=== PATIENT | female | born 1985 | race Caucasian/White ===

== ENCOUNTER 2017-12-18 23:25 | Emergency (ER) | payer SELFPAY ==
[2017-12-19] MEDS: IBUPROFEN 600 MG TAB PO (01:25)
[2017-12-19] MEDS: traMADol 50 MG TAB PO (01:25)
[2017-12-19] MEDS: CLINDAMYCIN 300 MG INJ IM (01:26)
== END 2017-12-19 01:45 | disposition home or self-care (01) ==
LOC: FTE 23:25
DX: L02.416 Cutaneous abscess of left lower limb (principal); J45.909 Unspecified asthma, uncomplicated; F17.210 Nicotine dependence, cigarettes, uncomplicated
CPT/HCPCS: 81025; 96372; 99284-25

== ENCOUNTER 2018-01-12 20:06 | Emergency (ER) | payer SELFPAY ==
[2018-01-12] MEDS: HYDROCODONE/APAP (5/325) TAB PO (20:32)
[2018-01-12] MEDS: LORAZEPAM 1 MG TAB PO (20:32)
[2018-01-12] MEDS: BACITRACIN 0.5%/ZINC 28.35 GM OINT TOP (21:25)
== END 2018-01-12 22:10 | disposition home or self-care (01) ==
LOC: FTE 20:06
DX: T24.231A Burn of second degree of right lower leg, initial encounter (principal); T24.232A Burn of second degree of left lower leg, initial encounter; T22.231A Burn of second degree of right upper arm, initial encounter; T22.232A Burn of second degree of left upper arm, initial encounter; J45.909 Unspecified asthma, uncomplicated; F17.210 Nicotine dependence, cigarettes, uncomplicated; X19.XXXA Contact with other heat and hot substances, initial encounter; Y92.9 Unspecified place or not applicable
CPT/HCPCS: 99283